=== PATIENT | male | born 1965 | race Two or more races ===

== ENCOUNTER 2022-11-12 12:30 | Outpatient (CLI) | payer MEDICARE | END 2022-11-12 23:59 | disposition home or self-care (01) | LOC: WOU 12:30 | PROVIDERS: ATTEND Podiatrist Foot & Ankle Surgery | DX: S93.524A Sprain of metatarsophalangeal joint of right lesser toe(s), initial encounter (principal); X58.XXXA Exposure to other specified factors, initial encounter; Y92.89 Other specified places as the place of occurrence of the external cause; M79.671 Pain in right foot; I10 Essential (primary) hypertension | CPT/HCPCS: G0463 ==